=== PATIENT | male | born 1945 | race Caucasian/White ===

== ENCOUNTER 2020-05-17 10:10 | Emergency (ER) | payer OTHER ==
[~2020-05-17] VITALS: Ht 177.8 cm; Wt 131.5 kg
[2020-05-17 10:10] VITALS: BP_SYST 174
--- NOTE | 2020-05-17 10:10 | NUR ---
BROUGHT BACK TO HALLWAY BED AND TRIAGED. REPORT GIVEN TO FERNIE
--- NOTE | 2020-05-17 10:19 | NUR ---
DR GUTIERREZ AT BEDSIDE FOR EVALUATION
--- NOTE | 2020-05-17 10:20 | NUR ---
Pt came for weakness that began on Friday and continued until today. Pt had NIHSS assessment done bedside. No pain at this time, AO4, follows commands, on monitor, resting comfortably
--- NOTE | 2020-05-17 10:30 | NUR ---
Fingerstick glucose 101
--- NOTE | 2020-05-17 10:30 | NUR ---
TAKEN TO RADIOLOGY VIA [facility]
[2020-05-17 11:35] LABS: BASOPHILS % (AUTO) 0.3 % (0.0-2.0); EOSINOPHILS % (AUTO) 1.2 % (0.0-4.0); HEMATOCRIT 42.8 % (36-54); HEMOGLOBIN 14.4 g/dL (14.0-18.0); LYMPHOCYTES # (AUTO) 0.9 K/uL (1.0-5.5); LYMPHOCYTES % (AUTO) 23.8 % (20.5-51.5); MEAN CORPUSCULAR HEMOGLOBIN 29 pg (27-31); MEAN CORPUSCULAR HGB CONC 34 % (32-36); MEAN CORPUSCULAR VOLUME 88 fL (79.0-98.0); MONOCYTES # (AUTO) 0.4 K/uL (0.0-1.0); MONOCYTES % (AUTO) 11.3 % (1.7-9.3); NEUTROPHILS # (AUTO) 2.5 K/uL (1.8-7.7); NEUTROPHILS % (AUTO) 63.4 % (40.0-70.0); PLATELET COUNT (AUTO) 146 K/uL (130-430); RED BLOOD CELL COUNT(AUTO) 4.89 MIL/uL (4.2-6.2); RED CELL DISTRIBUTION WIDTH 14.5 % (9.0-15.0)
[2020-05-17 11:38] LABS: ANION GAP 8 (5-15); CALCIUM 8.7 mg/dL (8.4-11.0); CHLORIDE 103 mmol/L (98-107); CREATININE 1.06 mg/dL (0.55-1.30); GLUCOSE 123 mg/dL (70-99); POTASSIUM 3.3 mmol/L (3.5-5.1); SODIUM SERUM 141 mmol/L (136-145); UREA NITROGEN, BLOOD 13 mg/dL (8-21)
[2020-05-17] MEDS ORDERED: IOHEXOL 50 ML IV ONE (11:40)
[2020-05-17 11:42] LABS: INR 1.1 (0.80-1.20); PROTHROMBIN TIME 10.8 SECS (9.5-12.5)
[2020-05-17 11:44] LABS: ALANINE AMINOTRANSFERASE 26 U/L (12-78); ALBUMIN 3.5 g/dL (3.4-4.8); ASPARTATE AMINOTRANSFERASE 25 U/L (10-37); TOTAL BILIRUBIN 0.9 mg/dL (0.0-1.0)
--- NOTE | 2020-05-17 11:46 | NUR ---
CT HEAD WITH CONTRAST CONSENT SIGNED.
--- NOTE | 2020-05-17 11:49 | NUR ---
TAKEN TO RADIOLOGY VIA [facility].
[2020-05-17] MEDS ORDERED: hydrALAZINE HCL 20 MG/ML VIAL IVP ONE (13:45)
--- NOTE | 2020-05-17 13:55 | NUR ---
Pt hypertensive, Hydralazine given. Will continue to monitor for effect
[2020-05-17] MEDS ORDERED: cloNIDine HCL 0.1 MG TABLET PO ONE (15:00)
--- NOTE | 2020-05-17 15:00 | NUR ---
Ordered pt second round of antihypertensive medication, will monitor for effect
[2020-05-17 16:15] VITALS: BP_SYST 165
== END 2020-05-17 16:15 | disposition home or self-care (01) ==
LOC: SED 10:10
DX: G93.9 Disorder of brain, unspecified (principal); R53.1 Weakness; E87.6 Hypokalemia; I10 Essential (primary) hypertension
CPT/HCPCS: 36415; 70450; 70460; 71045; 80053; 82962; 84484; 85025; 85610; 85730; 86886; 86900; 86901; 93005; 96374; 99285; J0360; Q9967

== ENCOUNTER 2020-08-23 10:43 | Observation (INO) | payer OTHER, SELFPAY ==
[~2020-08-23] VITALS: Ht 177.8 cm; Wt 117.9 kg
[2020-08-23 10:43] VITALS: BP_SYST 131
[2020-08-23] MEDS ORDERED: NACL 0.9% 1,000 ML IV ONE (11:30)
[2020-08-23 11:39] LABS: BASOPHILS % (AUTO) 0.6 % (0.0-2.0); HEMATOCRIT 40.5 % (36-54); HEMOGLOBIN 13.7 g/dL (14.0-18.0); LYMPHOCYTES # (AUTO) 0.3 K/uL (1.0-5.5); LYMPHOCYTES % (AUTO) 16.9 % (20.5-51.5); MEAN CORPUSCULAR HEMOGLOBIN 31 pg (27-31); MEAN CORPUSCULAR HGB CONC 34 % (32-36); MEAN CORPUSCULAR VOLUME 91 fL (79.0-98.0); NEUTROPHILS # (AUTO) 1.2 K/uL (1.8-7.7); NEUTROPHILS % (AUTO) 79.5 % (40.0-70.0); RED BLOOD CELL COUNT(AUTO) 4.46 MIL/uL (4.2-6.2); RED CELL DISTRIBUTION WIDTH 16.1 % (9.0-15.0)
[2020-08-23 11:52] LABS: ANION GAP 7 (5-15); CHLORIDE 101 mmol/L (98-107); GLUCOSE 200 mg/dL (70-99); POTASSIUM 3.7 mmol/L (3.5-5.1); SODIUM SERUM 137 mmol/L (136-145); UREA NITROGEN, BLOOD 31 mg/dL (8-21)
[2020-08-23 11:58] LABS: ALANINE AMINOTRANSFERASE 62 U/L (12-78); ALBUMIN 3.4 g/dL (3.4-4.8); ASPARTATE AMINOTRANSFERASE 18 U/L (10-37); TOTAL BILIRUBIN 1.1 mg/dL (0.0-1.0)
[2020-08-23 12:02] LABS: PROTHROMBIN TIME 10.6 SECS (9.5-12.5)
[2020-08-23 12:13] LABS: WHITE BLOOD COUNT (AUTO) 1.6 K/uL (4.8-10.8)
[2020-08-23 12:14] LABS: PLATELET COUNT (AUTO) 4 K/uL (130-430)
[2020-08-23 12:19] LABS: BILIRUBIN,URINE NEGATIVE (NEGATIVE); BLOOD, URINE 1+ (NEGATIVE); CLARITY/URINE CLEAR (CLEAR); COLOR,URINE YELLOW (YELLOW); GLUCOSE,URINE NEGATIVE (NEGATIVE); KETONES,URINE NEGATIVE (NEGATIVE); LEUKOCYTE ESTERASE ,URINE NEGATIVE (NEGATIVE); NITRITE, URINE NEGATIVE (NEGATIVE); PROTEIN URINE NEGATIVE (NEGATIVE)
[2020-08-23 12:47] LABS: BACTERIA,URINE None Seen /HPF (None Seen); TRICHOMONAS,URINE None Seen /HPF (None Seen); WBC,URINE NONE SEEN /HPF (0-3); YEAST,URINE None Seen /HPF (None Seen)
[2020-08-23 14:28] VITALS: BP_SYST 146
[2020-08-23 16:00] VITALS: BP_SYST 146
[2020-08-23] MEDS ORDERED: DEXA1TAB PO (17:11)
[2020-08-23] MEDS ORDERED: OMEP20CA15 PO (17:11)
[2020-08-23] MEDS ORDERED: HYDR25TA4 PO (17:11)
[2020-08-23] MEDS ORDERED: AMIO100T4 PO (17:11)
[2020-08-23] MEDS ORDERED: MECO10005 (17:11)
[2020-08-23] MEDS ORDERED: LISI40TA4 PO (17:11)
[2020-08-23] MEDS ORDERED: ATEN50TA PO (17:11)
[2020-08-23] MEDS ORDERED: PARO-63 PO (17:11)
[2020-08-23] MEDS ORDERED: DOXA1TAB2 PO (17:11)
[2020-08-23] MEDS ORDERED: TRIM100T11 PO (17:11)
[2020-08-23] MEDS ORDERED: LEVE500T99 PO (17:11)
[2020-08-23 20:09] VITALS: BP_SYST 142
[2020-08-23 21:23] LABS: BASOPHILS % (AUTO) 0.3 % (0.0-2.0); HEMOGLOBIN 12.6 g/dL (14.0-18.0); LYMPHOCYTES # (AUTO) 0.3 K/uL (1.0-5.5); LYMPHOCYTES % (AUTO) 17.2 % (20.5-51.5); MEAN CORPUSCULAR HEMOGLOBIN 31 pg (27-31); MEAN CORPUSCULAR HGB CONC 35 % (32-36); MEAN CORPUSCULAR VOLUME 89 fL (79.0-98.0); MONOCYTES # (AUTO) 0.1 K/uL (0.0-1.0); MONOCYTES % (AUTO) 3.9 % (1.7-9.3); NEUTROPHILS # (AUTO) 1.2 K/uL (1.8-7.7); NEUTROPHILS % (AUTO) 78.6 % (40.0-70.0); RED BLOOD CELL COUNT(AUTO) 4.03 MIL/uL (4.2-6.2); RED CELL DISTRIBUTION WIDTH 15.7 % (9.0-15.0)
[2020-08-23 22:03] LABS: PLATELET COUNT (AUTO) 11 K/uL (130-430)
[2020-08-23 22:05] LABS: WHITE BLOOD COUNT (AUTO) 1.5 K/uL (4.8-10.8)
[2020-08-24 00:05] VITALS: BP_SYST 146
[2020-08-24 03:20] VITALS: BP_SYST 134
[2020-08-24 07:36] LABS: BASOPHILS % (AUTO) 0.3 % (0.0-2.0); HEMATOCRIT 35.4 % (36-54); HEMOGLOBIN 12.4 g/dL (14.0-18.0); LYMPHOCYTES # (AUTO) 0.4 K/uL (1.0-5.5); LYMPHOCYTES % (AUTO) 22.1 % (20.5-51.5); MEAN CORPUSCULAR HEMOGLOBIN 31 pg (27-31); MEAN CORPUSCULAR HGB CONC 35 % (32-36); MEAN CORPUSCULAR VOLUME 90 fL (79.0-98.0); MONOCYTES # (AUTO) 0.1 K/uL (0.0-1.0); MONOCYTES % (AUTO) 3.6 % (1.7-9.3); NEUTROPHILS # (AUTO) 1.4 K/uL (1.8-7.7); RED BLOOD CELL COUNT(AUTO) 3.96 MIL/uL (4.2-6.2); RED CELL DISTRIBUTION WIDTH 15.9 % (9.0-15.0)
[2020-08-24 07:47] LABS: PLATELET COUNT (AUTO) 24 K/uL (130-430); WHITE BLOOD COUNT (AUTO) 1.9 K/uL (4.8-10.8)
[2020-08-24 08:00] VITALS: BP_SYST 130
[2020-08-24 11:01] VITALS: BP_SYST 143
[2020-08-24 11:09] VITALS: BP_SYST 143
== END 2020-08-24 11:45 | disposition home or self-care (01) ==
LOC: SED 10:43 → INTOOBSV 13:50 → STU 13:50
PROVIDERS: ADMIT Internal Medicine Hospice and Palliative Medicine; ATTEND Internal Medicine Hospice and Palliative Medicine
DX: D69.6 Thrombocytopenia, unspecified (principal); C71.9 Malignant neoplasm of brain, unspecified; I48.91 Unspecified atrial fibrillation; I10 Essential (primary) hypertension; D72.819 Decreased white blood cell count, unspecified; E66.9 Obesity, unspecified
CPT/HCPCS: 36415 ×2; 71045; 80053; 81000; 85025 ×2; 85610; 85730; 86886; 86900; 86901; 87040; 87426; 93005; 96360; 99285; G0378; J7040; P9034 ×2